=== PATIENT | male | born 1945 ===

== ENCOUNTER 2018-10-15 09:52 | Outpatient (CLI) | payer MEDICARE | END 2018-10-15 09:53 | disposition home or self-care (01) | LOC: C.LAB 09:52 | DX: I25.10 Atherosclerotic heart disease of native coronary artery without angina pectoris (principal); J44.1 Chronic obstructive pulmonary disease with (acute) exacerbation; E78.00 Pure hypercholesterolemia, unspecified; I10 Essential (primary) hypertension ==

== ENCOUNTER 2018-12-22 11:40 | Outpatient (CLI) | payer MEDICARE | END 2018-12-22 11:41 | disposition home or self-care (01) | LOC: C.LAB 11:40 | DX: Z01.812 Encounter for preprocedural laboratory examination (principal); N40.0 Benign prostatic hyperplasia without lower urinary tract symptoms ==

== ENCOUNTER 2018-12-25 13:40 | Outpatient (CLI) | payer MEDICARE | END 2018-12-25 13:41 | disposition home or self-care (01) | LOC: C.USIC 13:41 | DX: R31.29 Other microscopic hematuria (principal) ==